=== PATIENT | female | born 1965 | race Caucasian/White ===

== ENCOUNTER 2016-05-16 11:34 | Emergency (ER) | payer OTHER ==
[2016-05-16] MEDS ORDERED: ONDANSETRON 4MG/2ML VIAL (J2405) As Ordered ONE (12:05)
[2016-05-16] MEDS ORDERED: MORPHINE 4 MG/ML 1ML SYRINGE As Ordered ONE (12:05)
[2016-05-16 12:26] LABS: BASO % 0.1 % (0.0-1.0); EOS # 0.2 K/mm3 (0.0-0.50); EOS % 1.3 % (0.0-3.0); LARGE UNSTAINED CELL # 0.1 K/mm3 (0.0-0.4); LARGE UNSTAINED CELL % 1.1 % (0.0-4.0); LYMPH # 2.3 K/mm3 (1.5-4.5); LYMPH % 16.6 % (24.0-44.0); MEAN CORPUSCULAR HEMOGLOBIN 28.2 pg (27.0-33.0); MEAN CORPUSCULAR HGB CONC 32.7 g/dl (32.0-36.5); MEAN CORPUSCULAR VOLUME 86.2 fl (80.0-96.0); MONO # 0.7 K/mm3 (0.0-0.8); MONO % 5.1 % (0.0-5.0); NEUTROPHILS # 9.8 K/mm3 (1.8-7.7); NEUTROPHILS % 75.8 % (36.0-66.0); PLATELET COUNT, AUTOMATED 361 k/mm3 (150-450); RED CELL DISTRIBUTION WIDTH 13.1 % (11.5-14.5)
[2016-05-16 12:47] LABS: ALBUMIN 3.8 GM/DL (3.2-5.2); ALKALINE PHOSPHATASE 95 U/L (45-117); ALT/SGPT 19 U/L (12-78); AMYLASE 31 U/L (25-115); ANION GAP 9 MEQ/L (8-16); AST/SGOT 20 U/L (15-37); BILIRUBIN,DIRECT < 0.1 MG/DL (0.0-0.2); BILIRUBIN,TOTAL 0.3 MG/DL (0.2-1.0); BLOOD UREA NITROGEN 17 MG/DL (7-18); CALCIUM LEVEL 9.3 MG/DL (8.5-10.1); CARBON DIOXIDE LEVEL 28 MEQ/L (21-32); CHLORIDE LEVEL 104 MEQ/L (98-107); CREATININE FOR GFR 0.98 MG/DL (0.55-1.02); GLOMERULAR FILTRATION RATE > 60.0 (>51); GLUCOSE, FASTING 110 MG/DL (70-105); POTASSIUM SERUM 4.2 MEQ/L (3.5-5.1); SODIUM LEVEL 141 MEQ/L (136-145)
--- NOTE | 2016-05-16 13:45 | REP ---
CT ABDOMEN PELVIS WITHOUT IV OR ORAL CONTRAST: Renal stone protocol. HISTORY: Renal colic. No comparison study. FINDINGS: Digital preliminary technician chemical cleaning radiograph shows an unremarkable bowel gas pattern. The lung bases are essentially clear. The liver and the spleen are normal in size and homogeneous in texture. There is mild fatty infiltration of the liver. Gallbladder shows heterogeneous density interiorly question gallstones in the dependent portion of the gallbladder. The pancreas is unremarkable. No adrenal lesion is seen on either side. There is no evidence of intrarenal calculus in either kidney. There is mild to moderate left-sided hydronephrosis and left-sided hydroureter is seen. There is some perinephric and periureteral stranding. The left ureter is traced to the bladder without evidence of ureteral stone. No bladder calculus is seen. No mass lesion is observed. No right ureteral stone is seen. No right-sided hydronephrosis is noted. There is mild diverticulosis in the sigmoid colon without CT evidence of diverticulitis. No abdominal wall defect is seen. Small and large intestinal bowel loops are unremarkable. Normal appendix is seen. No uterine or ovarian abnormality is observed. IMPRESSION: Left-sided hydronephrosis and hydroureter. No urinary tract calculus is seen. Question recent stone passage. Left colonic diverticulosis without CT evidence of diverticulitis. Mild diffuse fatty infiltration of the liver. Question cholelithiasis. Otherwise negative. Signed by Donald Willis MD 05/16/2016 02:06 P
[2016-05-16] MEDS ORDERED: TAMSULOSIN 0.4 MG CAP As Ordered ONE (13:49)
[2016-05-16] MEDS ORDERED: NITROFURANTOIN (MACROBID) 100 MG CAP As Ordered ONE (13:49)
[2016-05-16] MEDS ORDERED: PHENAZOPYRIDINE 100 MG TAB As Ordered ONE (13:50)
--- NOTE | 2016-05-16 14:02 | EDDOCDS ---
Nurse's Notes [facility] Name: Sarah Haq Age: 50 yrs Sex: Female : 1965 Arrival Date: 05/16/2016 Time: 11:34 Bed I5 / M5 Private MD: Diagnosis: Urinary tract infection, site not specified;Calculus of kidney and ncftqs-Pfbh-qknax hydronephrosis and hydroureter on CT, most likely recent stone passage;Diverticulosis of large intestine without perforation or abscess without bleeding-Left colonic diverticulosis;Fatty (change of) liver, not elsewhere classified Presentation: 05/16 11:38 Presenting complaint: Patient states: left abd pian since last night. vomiting also. srm Risk factors: the patient reports no vaginal bleeding. Adult Sepsis Screening: The patient does not have new or worsening altered mentation. Patient's respiratory rate is less than 22. Systolic blood pressure is greater than 100. Patient has a qSOFA score of 0- Negative Sepsis Screen. Suicide/Homicide risk assessment- the patient denies having any suicidal and/or homicidal ideations and does not present with any other emotional, behavioral or mental health complaints. Status: Patient is not a support services manager or dependent. Transition of care: patient was not received from another setting of care. 11:38 Acuity: UDAY Level 3 srm 11:38 Method Of Arrival: Walkin/Carried/Asstd srm Triage Assessment: 11:40 General: Appears in no apparent distress, Behavior is appropriate for age, cooperative. srm Pain: Pain currently is 7 out of 10 on a pain scale. Pt Declines HIV testing. GI: Reports LLQ pain. 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 venlafaxine 150 mg oral tr24 1 tab once daily 2. metformin 500 mg Oral tr24 twice a day 3. lamotrigine 200 mg Oral TbDL 1 tab 2 times per day 4. Vicodin 5/500 10-325mg Oral three times a day - PMHx: Anxiety; Depression; back pain; hip pain; Diabetes - NIDDM: controlled; - PSHx: back surgery; ulnar nerve; Tubal ligation; uterine ablation; throat biopsy; - Social history: Smoking status: Patient uses tobacco products, current every day smoker. No barriers to communication noted, The patient speaks fluent Qatari, Speaks appropriately for age. - Family history: Not pertinent. - : The pt / caregiver states he / she is not on anticoagulants. Home medication list is obtained from the patient. - Exposure Risk Screening:: None identified. Screenin:25 Screening information is obtained from the patient. Fall risk: No risks identified. ml6 Assistance ADL's: requires no assistance with activities of daily living. Abuse/DV Screen: The patient / caregiver reports he/she is: not in a situation that causes fear, pain or injury. Nutritional screening: No deficits noted. Advance Directives: Currently, there is no health care proxy. home support is adequate. Assessment: 11:45 General: Appears in no apparent distress, comfortable, Behavior is appropriate for age, ml6 cooperative. Pain: Location: posterior aspect of left lateral abdomen and anterior aspect of left lateral abdomen Pain currently is 4 out of 10 on a pain scale. Pain does not radiate. Quality of pain is described as aching, Pain began 2-3 days ago Is continuous Alleviated by nothing. Aggravated by increased activity. Cardiovascular: No deficits noted. Capillary refill < 3 seconds is brisk in bilateral fingers toes. Respiratory: No deficits noted. GI: Abdomen is flat, non- distended Bowel sounds present X 4 quads. Abd is soft X 4 quads Abd is tender to palpation in posterior aspect of left lateral abdomen and anterior aspect of left lateral abdomen Reports nausea, Denies vomiting. 12:45 Reassessment: Patient appears in no apparent distress at this time. Patient denies pain ml6 at this time. Patient states feeling better. Patient states symptoms have improved. patient states that pain has resolved. Vital Signs: 11:37 BP 162 / 71 RA Sitting (auto/lg); Pulse 95; Resp 18; Temp 98.6(T); Pulse Ox 100% on rs6 R/A; Weight 88.45 kg (R); Height 5 ft. 8 in. (172.72 cm) (R); Pain 7/10; 12:24 Temp 98.3(O); ml6 13:59 BP 147 / 73; Pulse 81; Resp 14; Temp 98.4(O); Pulse Ox 98% on R/A; Pain 0/10; ml6 11:37 Body Mass Index 29.65 (88.45 kg, 172.72 cm) rs6 Vitals: 11:37 Log In Time: May 16, 2016 at 11:37. rs6 ED Course: 11:35 Patient visited by Mirella Hendrickson PCA. rs6 11:35 Patient moved to Waiting rs6 11:37 Patient visited by Mirella Hendrickson PCA. rs6 11:37 Patient moved to Pre RCE rs6 11:38 Triage Initiated srm 11:54 Marina Gibbs PA-C is PHCP. ef1 11:54 Magaly Montemayor MD is Attending Physician. ef1 11:56 Patient visited by Marina Gibbs PA-C. ef1 11:56 Patient moved to I5 / M5 kr3 12:07 Pt greeted and oriented to ED. Patient advised of names of staff involved in care, jamDominique location of call vincent, wait times and NPO status. Patient has correct armband on for positive identification. Bed in low position. Call light in reach. Side rails up X 1. Adult w/ patient. Door closed. 12:19 Patient name changed from Sarah\S\\S\Garrow\S\ to Sraah\S\[place]ark\S\Garrow. EDMS 12:20 [facility] Payment Agreement was scanned into [employer] and attached to record. lg 12:25 Inserted peripheral IV: 18gauge IV in left antecubital area and blood collected. ml6 Patient tolerated the procedure well. Labs drawn. (by ED staff). Sent per order to lab. 12:28 Patient visited by Vinicius Farley RN. ml6 12:58 Patient visited by Vinicius Farley RN. ml6 13:22 Patient visited by Vinicius Farley RN. ml6 13:39 Patient visited by Marina Gibbs PA-C. ef1 13:46 Clayton Yang is Referral Physician. ef1 13:48 Pt greeted and oriented to ED. Patient advised of names of staff involved in care, jamDominique location of call vincent, wait times and NPO status. Patient has correct armband on for positive identification. Bed in low position. Call light in reach. Side rails up X 1. Door closed. 14:00 Discontinued IV bleeding controlled, pressure dressing applied, No redness/swelling at ml6 site. No procedures done that require assistance. 14:01 The patient / caregiver is instructed regarding the plan of care and ED course. ml6 Administered Medications: 12:21 Drug: NS 0.9% 1000 ml [sodium chloride 0.9 % intravenous solution] Route: IV; Rate: ml6 bolus; Site: left antecubital; 13:59 Follow up: IV Status: Completed infusion; Infusion discontinued; IV Intake: 1000ml ml6 12:21 Drug: Ondansetron 4 mg [ondansetron HCl 2 mg/mL intravenous solution (2 mL)] Route: ml6 IVP; Site: left antecubital; 12:21 Drug: morphine 4 mg [morphine 4 mg/mL intravenous cartridge (1 mL)] Route: IVP; Site: ml6 left antecubital; 13:58 Drug: Tamsulosin 0.4 mg [tamsulosin 0.4 mg capsule (1 caps)] Route: PO; ml6 13:58 Drug: Phenazopyridine 200 mg [phenazopyridine 100 mg tablet (2 tabs)] Route: PO; ml6 13:59 Drug: Nitrofurantoin 100 mg [nitrofurantoin macrocrystal 50 mg capsule (2 caps)] Route: ml6 PO; Intake: 13:59 IV: 1000.00ml; Total: 1000.00ml. ml6 Order Results: Lab Order: Amylase; SPEC'M 05/16/16 12:17 Test: AMYLASE; Value: 31; Range: 25-115; Units: U/L; Status: F Lab Order: Basic Metabolic Profile; SPEC'M 05/16/16 12:17 Test: GLUCOSE, FASTING; Value: 110; Range: 70-105; Abnormal: Above high normal; Units: MG/DL; Status: F Test: BLOOD UREA NITROGEN; Value: 17; Range: 7-18; Units: MG/DL; Status: F Test: CREATININE FOR GFR; Value: 0.98; Range: 0.55-1.02; Units: MG/DL; Status: F Test: GLOMERULAR FILTRATION RATE; Value: > 60.0; Range: >51; Status: F Test: SODIUM LEVEL; Value: 141; Range: 136-145; Units: MEQ/L; Status: F Test: POTASSIUM SERUM; Value: 4.2; Range: 3.5-5.1; Units: MEQ/L; Status: F Test: CHLORIDE LEVEL; Value: 104; Range: 98-107; Units: MEQ/L; Status: F Test: CARBON DIOXIDE LEVEL; Value: 28; Range: 21-32; Units: MEQ/L; Status: F Test: ANION GAP; Value: 9; Range: 8-16; Units: MEQ/L; Status: F Test: CALCIUM LEVEL; Value: 9.3; Range: 8.5-10.1; Units: MG/DL; Status: F Test Note: ; Units are mL/min/1.73 m2 Chronic Kidney Disease Staging per NKF: Stage I & II GFR >=60 Normal to Mildly Decreased Stage III GFR 30-59 Moderately Decreased Stage IV GFR 15-29 Severely Decreased Stage V GFR <15 Very Little GFR Left ESRD GFR <15 on PLATE MILL MILL HAND Lab Order: CBC with Diff; SPEC'M 05/16/16 12:17 Test: WHITE BLOOD COUNT; Value: 13.0; Range: 4.0-10.0; Abnormal: Above high normal; Units: K/mm3; Status: F Test: RED BLOOD COUNT; Value: 4.70; Range: 4.00-5.40; Units: M/mm3; Status: F Test: HEMOGLOBIN; Value: 13.3; Range: 12.0-16.0; Units: g/dl; Status: F Test: HEMATOCRIT; Value: 40.6; Range: 36.0-47.0; Units: %; Status: F Test: MEAN CORPUSCULAR VOLUME; Value: 86.2; Range: 80.0-96.0; Units: fl; Status: F Test: MEAN CORPUSCULAR HEMOGLOBIN; Value: 28.2; Range: 27.0-33.0; Units: pg; Status: F Test: MEAN CORPUSCULAR HGB CONC; Value: 32.7; Range: 32.0-36.5; Units: g/dl; Status: F Test: RED CELL DISTRIBUTION WIDTH; Value: 13.1; Range: 11.5-14.5; Units: %; Status: F Test: PLATELET COUNT, AUTOMATED; Value: 361; Range: 150-450; Units: k/mm3; Status: F Test: NEUTROPHILS %; Value: 75.8; Range: 36.0-66.0; Abnormal: Above high normal; Units: %; Status: F Test: LYMPH %; Value: 16.6; Range: 24.0-44.0; Abnormal: Below low normal; Units: %; Status: F Test: MONO %; Value: 5.1; Range: 0.0-5.0; Abnormal: Above high normal; Units: %; Status: F Test: EOS %; Value: 1.3; Range: 0.0-3.0; Units: %; Status: F Test: BASO %; Value: 0.1; Range: 0.0-1.0; Units: %; Status: F Test: LARGE UNSTAINED CELL %; Value: 1.1; Range: 0.0-4.0; Units: %; Status: F Test: NEUTROPHILS #; Value: 9.8; Range: 1.8-7.7; Abnormal: Above high normal; Units: K/mm3; Status: F Test: LYMPH #; Value: 2.3; Range: 1.5-4.5; Units: K/mm3; Status: F Test: MONO #; Value: 0.7; Range: 0.0-0.8; Units: K/mm3; Status: F Test: EOS #; Value: 0.2; Range: 0.0-0.50; Units: K/mm3; Status: F Test: BASO #; Value: 0.0; Range: 0.0-0.2; Units: K/mm3; Status: F Test: LARGE UNSTAINED CELL #; Value: 0.1; Range: 0.0-0.4; Units: K/mm3; Status: F Lab Order: Lipase; SPEC'M 05/16/16 12:17 Test: LIPASE; Value: 121; Range: 73-393; Units: U/L; Status: F Lab Order: Liver Profile; SPEC'M 05/16/16 12:17 Test: AST/SGOT; Value: 20; Range: 15-37; Units: U/L; Status: F Test: ALT/SGPT; Value: 19; Range: 12-78; Units: U/L; Status: F Test: ALKALINE PHOSPHATASE; Value: 95; Range: 45-117; Units: U/L; Status: F Test: BILIRUBIN,TOTAL; Value: 0.3; Range: 0.2-1.0; Units: MG/DL; Status: F Test: BILIRUBIN,DIRECT; Value: < 0.1; Range: 0.0-0.2; Units: MG/DL; Status: F Test: TOTAL PROTEIN; Value: 8.0; Range: 6.4-8.2; Units: GM/DL; Status: F Test: ALBUMIN; Value: 3.8; Range: 3.2-5.2; Units: GM/DL; Status: F Test: ALBUMIN/GLOBULIN RATIO; Value: 0.90; Range: 1.00-1.93; Abnormal: Below low normal; Status: F Lab Order: UA; SPEC'M 05/16/16 12:17 Test: APPEARANCE, URINE; Value: HAZY; Range: CLEAR; Status: F Test: COLOR, URINE; Value: YELLOW; Range: YELLOW; Status: F Test: PH,URINE; Value: 6.0; Range: 5.0-9.0; Units: UNITS; Status: F Test: SPECIFIC GRAVITY URINE AUTO; Value: 1.019; Range: 1.002-1.035; Status: F Test: PROTEIN, URINE AUTO; Value: 2+; Range: NEGATIVE; Abnormal: Above high normal; Units: mg/dL; Status: F Test: GLUCOSE, URINE (UA) AUTO; Value: NEGATIVE; Range: NEGATIVE; Units: mg/dL; Status: F Test: KETONE, URINE AUTO; Value: NEGATIVE; Range: NEGATIVE; Units: mg/dL; Status: F Test: UROBILINOGEN, URINE AUTO; Value: 0.2; Range: 0.0-2.0; Units: mg/dL; Status: F Test: BILIRUBIN, URINE AUTO; Value: NEGATIVE; Range: NEGATIVE; Status: F Test: NITRITE, URINE AUTO; Value: NEGATIVE; Range: NEGATIVE; Status: F Test: LEUKOCYTE ESTERASE, URINE AUTO; Value: TRACE; Range: NEGATIVE; Abnormal: Above high normal; Status: F Test: BLOOD, URINE BLOOD; Value: 3+; Range: NEGATIVE; Abnormal: Above high normal; Status: F Test: WBC, URINE AUTO; Value: 8; Range: 0-3; Abnormal: Above high normal; Units: /HPF; Status: F Test: RBC, URINE AUTO; Value: TNTC; Range: 0-3; Abnormal: Above high normal; Units: /HPF; Status: F Test: BACTERIA, URINE AUTO; Value: NEGATIVE; Range: NEGATIVE; Status: F Test: SQUAMOUS EPITHELIAL CELL UR AU; Value: 1; Range: 0-6; Units: /HPF; Status: F Test: MUCUS, URINE; Value: SMALL; Range: NEGATIVE; Status: F Test: HYALINE CAST, URINE AUTO; Value: 0; Range: 0-1; Units: /LPF; Status: F Test: AMORPHOUS SEDIMENT; Value: SMALL; Range: NEGATIVE; Abnormal: Above high normal; Status: F Outcome: 13:48 Discharge ordered by Provider. ef1 14:00 Discharge Assessment: patient administered narcotics - no. The following High Risk ml6 Discharge criteria are identified: None. Discharged to home ambulatory, with significant other. Condition: stable. Discharge instructions given to patient, Instructed on discharge instructions, follow up and referral plans. medication usage, Demonstrated understanding of instructions, medications, Pt was receptive of discharge instructions/ teaching. Prescriptions given X 3. CT Study completed. Property :Personal belongings accompany Pt. 14:01 Patient left the ED. ml6 Signatures: Dispatcher [employer] EDMS Nava Moe, RN RN Cherelle Freed, DATA CENTER SOLUTIONS ARCHITECT [employer] CENTER [employer]UTIONS ARCHITECT jam1 Lin Zheng, Reg Reg lg Sylvia Christy,RN RN [id number] Marina Gibbs, PAAniya PASylwiaC ef1 Vinicius Farley, HOLLI RN ml6 Mirella Hendrickson, DATA CENTER [employer]UTIONS ARCHITECT [employer] CENTER [employer]UTIONS ARCHITECT rs6 MTDD
--- NOTE | 2016-05-16 14:02 | EDDOCDS ---
Physician Documentation [facility] Name: Sarah Haq Age: 50 yrs Sex: Female : 1965 Arrival Date: 05/16/2016 Time: 11:34 Bed I5 / M5 Private MD: Disposition: 05/16/16 13:48 Discharged to Home/Self Care. Impression: Urinary tract infection, site not specified, Calculus of kidney and ureter - Left-sided hydronephrosis and hydroureter on CT, most likely recent stone passage, Diverticulosis of large intestine without perforation or abscess without bleeding - Left colonic diverticulosis, Fatty (change of) liver, not elsewhere classified. - Condition is Stable. - Discharge Instructions: Diverticulosis, Kidney Stones, [id number], Urinary Tract Infection, [id number]. - Prescriptions for Pyridium 200 mg Oral Tablet - take 1 tablet by ORAL route every 8 hours for 3 days; 9 tablet. Macrobid 100 mg Oral Capsule - take 100 milligram by ORAL route every 12 hours for 10 days; 20 capsule. Flomax 0.4 mg Oral Capsule, Sust. Release 24 hr - take 1 capsule by ORAL route once daily 1/2 hour following the same meal each day; 30 capsule. - Medication Reconciliation, Local Pharmacy Hours form. - Follow up: Private Physician; When: 1 - 2 days; Reason: Recheck today's complaints, Continuance of care. Follow up: Clayton Yang; When: Call to arrange an appointment; Reason: Further diagnostic work-up, Recheck today's complaints, Continuance of care. Follow up: Emergency Department; Reason: Worsening of conditions. - Problem is new. - Symptoms have improved. Historical: - Allergies: no known allergies; - Home Meds: 1. venlafaxine 150 mg oral tr24 1 tab once daily 2. metformin 500 mg Oral tr24 twice a day 3. lamotrigine 200 mg Oral TbDL 1 tab 2 times per day 4. Vicodin 5/500 10-325mg Oral three times a day - PMHx: Anxiety; Depression; back pain; hip pain; Diabetes - NIDDM: controlled; - PSHx: back surgery; ulnar nerve; Tubal ligation; uterine ablation; throat biopsy; - Social history: Smoking status: Patient uses tobacco products, current every day smoker. No barriers to communication noted, The patient speaks fluent Azeri, Speaks appropriately for age. - Family history: Not pertinent. - : The pt / caregiver states he / she is not on anticoagulants. Home medication list is obtained from the patient. - Exposure Risk Screening:: None identified. 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 8 in. (172.72 cm) (R); Pain 7/10; 12:24 Temp 98.3(O); ml6 13:59 BP 147 / 73; Pulse 81; Resp 14; Temp 98.4(O); Pulse Ox 98% on R/A; Pain 0/10; ml6 11:37 Body Mass Index 29.65 (88.45 kg, 172.72 cm) rs6 MDM: 11:46 Undress patient appropriately for examination ordered. sd1 11:46 Amylase Ordered. EDMS 11:46 Basic Metabolic Profile Ordered. EDMS 11:46 CBC with Diff Ordered. EDMS 11:46 Lipase Ordered. EDMS 11:46 Liver Profile Ordered. EDMS 11:47 NOTHING BY MOUTH+DIET ordered. EDMS 11:55 IV Saline Lock ordered. ef1 11:55 NS 0.9% 1000 ml IV at bolus once ordered. ef1 11:55 Ondansetron 4 mg IVP once ordered. ef1 11:55 morphine 4 mg IVP once ordered. ef1 11:56 UA Ordered. EDMS 11:56 Urine Culture Ordered. EDMS 12:09 Financial registration complete. lg 12:14 Vital Signs ordered. ef1 12:20 [facility] Payment Agreement was scanned into [employer] and attached to record. lg 12:22 CT ABD & PELVIS: No Contrast Ordered. EDMS 13:04 Basic Metabolic Profile Reviewed. ef1 13:04 CBC with Diff Reviewed. ef1 13:04 Liver Profile Reviewed. ef1 13:04 UA Reviewed. ef1 13:04 Amylase Reviewed. ef1 13:04 Lipase Reviewed. ef1 13:42 Nitrofurantoin 100 mg PO once ordered. ef1 13:42 Tamsulosin Extended Release 24 hour Capsule 0.4 mg PO once ordered. ef1 13:42 Phenazopyridine 200 mg PO once ordered. ef1 13:58 Tamsulosin Extended Release 24 hour Capsule 0.4 mg PO once ordered. ml6 Administered Medications: 12:21 Drug: NS 0.9% 1000 ml [sodium chloride 0.9 % intravenous solution] Route: IV; Rate: ml6 bolus; Site: left antecubital; 13:59 Follow up: IV Status: Completed infusion; Infusion discontinued; IV Intake: 1000ml ml6 12:21 Drug: Ondansetron 4 mg [ondansetron HCl 2 mg/mL intravenous solution (2 mL)] Route: ml6 IVP; Site: left antecubital; 12:21 Drug: morphine 4 mg [morphine 4 mg/mL intravenous cartridge (1 mL)] Route: IVP; Site: ml6 left antecubital; 13:58 Drug: Tamsulosin 0.4 mg [tamsulosin 0.4 mg capsule (1 caps)] Route: PO; ml6 13:58 Drug: Phenazopyridine 200 mg [phenazopyridine 100 mg tablet (2 tabs)] Route: PO; ml6 13:59 Drug: Nitrofurantoin 100 mg [nitrofurantoin macrocrystal 50 mg capsule (2 caps)] Route: ml6 PO; Signatures: Dispatcher [employer] Magaly Fernandez MD MD sd1 Nava Moe RN RN [facility] Lin Zheng, Pk Reg lg Marina Gibbs, PA-C PA-C ef1 Vinicius Farley RN RN ml6 The chart was reviewed and I authenticate all verbal orders and agree with the evaluation and treatment provided.Attachments: 12:20 [facility] Payment Agreement lg MTDD
--- NOTE | 2016-05-18 15:02 | EDDOCDS ---
Physician Documentation [facility] Name: Sarah Haq Age: 50 yrs Sex: Female : 1965 Arrival Date: 05/16/2016 Time: 11:34 Bed I5 / M5 Private MD: Disposition: 05/16/16 13:48 Discharged to Home/Self Care. Impression: Urinary tract infection, site not specified, Calculus of kidney and ureter - Left-sided hydronephrosis and hydroureter on CT, most likely recent stone passage, Diverticulosis of large intestine without perforation or abscess without bleeding - Left colonic diverticulosis, Fatty (change of) liver, not elsewhere classified. - Condition is Stable. - Discharge Instructions: Diverticulosis, Kidney Stones, [id number], Urinary Tract Infection, [id number]. - Prescriptions for Pyridium 200 mg Oral Tablet - take 1 tablet by ORAL route every 8 hours for 3 days; 9 tablet. Macrobid 100 mg Oral Capsule - take 100 milligram by ORAL route every 12 hours for 10 days; 20 capsule. Flomax 0.4 mg Oral Capsule, Sust. Release 24 hr - take 1 capsule by ORAL route once daily 1/2 hour following the same meal each day; 30 capsule. - Medication Reconciliation, Local Pharmacy Hours form. - Follow up: Private Physician; When: 1 - 2 days; Reason: Recheck today's complaints, Continuance of care. Follow up: Clayton Yang; When: Call to arrange an appointment; Reason: Further diagnostic work-up, Recheck today's complaints, Continuance of care. Follow up: Emergency Department; Reason: Worsening of conditions. - Problem is new. - Symptoms have improved. Historical: - Allergies: no known allergies; - Home Meds: 1. venlafaxine 150 mg oral tr24 1 tab once daily 2. metformin 500 mg Oral tr24 twice a day 3. lamotrigine 200 mg Oral TbDL 1 tab 2 times per day 4. Vicodin 5/500 10-325mg Oral three times a day - PMHx: Anxiety; Depression; back pain; hip pain; Diabetes - NIDDM: controlled; - PSHx: back surgery; ulnar nerve; Tubal ligation; uterine ablation; throat biopsy; - Social history: Smoking status: Patient uses tobacco products, current every day smoker. No barriers to communication noted, The patient speaks fluent Faroese, Speaks appropriately for age. - Family history: Not pertinent. - : The pt / caregiver states he / she is not on anticoagulants. Home medication list is obtained from the patient. - Exposure Risk Screening:: None identified. 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 8 in. (172.72 cm) (R); Pain 7/10; 12:24 Temp 98.3(O); ml6 13:59 BP 147 / 73; Pulse 81; Resp 14; Temp 98.4(O); Pulse Ox 98% on R/A; Pain 0/10; ml6 11:37 Body Mass Index 29.65 (88.45 kg, 172.72 cm) rs6 MDM: 11:46 Undress patient appropriately for examination ordered. sd1 11:46 Amylase Ordered. EDMS 11:46 Basic Metabolic Profile Ordered. EDMS 11:46 CBC with Diff Ordered. EDMS 11:46 Lipase Ordered. EDMS 11:46 Liver Profile Ordered. EDMS 11:47 NOTHING BY MOUTH+DIET ordered. EDMS 11:55 IV Saline Lock ordered. ef1 11:55 NS 0.9% 1000 ml IV at bolus once ordered. ef1 11:55 Ondansetron 4 mg IVP once ordered. ef1 11:55 morphine 4 mg IVP once ordered. ef1 11:56 UA Ordered. EDMS 11:56 Urine Culture Ordered. EDMS 12:09 Financial registration complete. lg 12:14 Vital Signs ordered. ef1 12:20 [facility] Payment Agreement was scanned into [employer] and attached to record. lg 12:22 CT ABD & PELVIS: No Contrast Ordered. EDMS 13:04 Basic Metabolic Profile Reviewed. ef1 13:04 CBC with Diff Reviewed. ef1 13:04 Liver Profile Reviewed. ef1 13:04 UA Reviewed. ef1 13:04 Amylase Reviewed. ef1 13:04 Lipase Reviewed. ef1 13:42 Nitrofurantoin 100 mg PO once ordered. ef1 13:42 Tamsulosin Extended Release 24 hour Capsule 0.4 mg PO once ordered. ef1 13:42 Phenazopyridine 200 mg PO once ordered. ef1 13:58 Tamsulosin Extended Release 24 hour Capsule 0.4 mg PO once ordered. ml6 14:30 T-Sheet-- Draft Copy was scanned into [employer] and attached to record. gb 14:30 Radiology Report was scanned into [employer] and attached to record. gb Administered Medications: 12:21 Drug: NS 0.9% 1000 ml [sodium chloride 0.9 % intravenous solution] Route: IV; Rate: ml6 bolus; Site: left antecubital; 13:59 Follow up: IV Status: Completed infusion; Infusion discontinued; IV Intake: 1000ml ml6 12:21 Drug: Ondansetron 4 mg [ondansetron HCl 2 mg/mL intravenous solution (2 mL)] Route: ml6 IVP; Site: left antecubital; 12:21 Drug: morphine 4 mg [morphine 4 mg/mL intravenous cartridge (1 mL)] Route: IVP; Site: ml6 left antecubital; 13:58 Drug: Tamsulosin 0.4 mg [tamsulosin 0.4 mg capsule (1 caps)] Route: PO; ml6 13:58 Drug: Phenazopyridine 200 mg [phenazopyridine 100 mg tablet (2 tabs)] Route: PO; ml6 13:59 Drug: Nitrofurantoin 100 mg [nitrofurantoin macrocrystal 50 mg capsule (2 caps)] Route: ml6 PO; Signatures: Dispatcher [employer] EDMgaaly Jose MD MD sd1 Nava Moe RN RN [facility] Jessica Topete, Reg Reg gb Lin Zheng, Reg Reg lg Marina Gibbs PA-Ilia PAAniya ef1 Vinicius Farley RN RN ml6 The chart was reviewed and I authenticate all verbal orders and agree with the evaluation and treatment provided.Attachments: 12:20 [facility] Payment Agreement lg 14:30 T-Sheet-- Draft Copy gb Chart Complete MTDD
--- NOTE | 2016-05-18 15:02 | EDDOCDS ---
Nurse's Notes [facility] Name: Sarah Haq Age: 50 yrs Sex: Female : 1965 Arrival Date: 05/16/2016 Time: 11:34 Bed I5 / M5 Private MD: Diagnosis: Urinary tract infection, site not specified;Calculus of kidney and [id number]-[id number] hydronephrosis and hydroureter on CT, most likely recent stone passage;Diverticulosis of large intestine without perforation or abscess without bleeding-Left colonic diverticulosis;Fatty (change of) liver, not elsewhere classified Presentation: 05/16 11:38 Presenting complaint: Patient states: left abd pian since last night. vomiting also. srm Risk factors: the patient reports no vaginal bleeding. Adult Sepsis Screening: The patient does not have new or worsening altered mentation. Patient's respiratory rate is less than 22. Systolic blood pressure is greater than 100. Patient has a qSOFA score of 0- Negative Sepsis Screen. Suicide/Homicide risk assessment- the patient denies having any suicidal and/or homicidal ideations and does not present with any other emotional, behavioral or mental health complaints. Status: Patient is not a financial services representative or dependent. Transition of care: patient was not received from another setting of care. 11:38 Acuity: UDAY Level 3 srm 11:38 Method Of Arrival: Walkin/Carried/Asstd srm Triage Assessment: 11:40 General: Appears in no apparent distress, Behavior is appropriate for age, cooperative. srm Pain: Pain currently is 7 out of 10 on a pain scale. Pt Declines HIV testing. GI: Reports LLQ pain. 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 venlafaxine 150 mg oral tr24 1 tab once daily 2. metformin 500 mg Oral tr24 twice a day 3. lamotrigine 200 mg Oral TbDL 1 tab 2 times per day 4. Vicodin 5/500 10-325mg Oral three times a day - PMHx: Anxiety; Depression; back pain; hip pain; Diabetes - NIDDM: controlled; - PSHx: back surgery; ulnar nerve; Tubal ligation; uterine ablation; throat biopsy; - Social history: Smoking status: Patient uses tobacco products, current every day smoker. No barriers to communication noted, The patient speaks fluent Vincentian, Speaks appropriately for age. - Family history: Not pertinent. - : The pt / caregiver states he / she is not on anticoagulants. Home medication list is obtained from the patient. - Exposure Risk Screening:: None identified. Screenin:25 Screening information is obtained from the patient. Fall risk: No risks identified. ml6 Assistance ADL's: requires no assistance with activities of daily living. Abuse/DV Screen: The patient / caregiver reports he/she is: not in a situation that causes fear, pain or injury. Nutritional screening: No deficits noted. Advance Directives: Currently, there is no health care proxy. home support is adequate. Assessment: 11:45 General: Appears in no apparent distress, comfortable, Behavior is appropriate for age, ml6 cooperative. Pain: Location: posterior aspect of left lateral abdomen and anterior aspect of left lateral abdomen Pain currently is 4 out of 10 on a pain scale. Pain does not radiate. Quality of pain is described as aching, Pain began 2-3 days ago Is continuous Alleviated by nothing. Aggravated by increased activity. Cardiovascular: No deficits noted. Capillary refill < 3 seconds is brisk in bilateral fingers toes. Respiratory: No deficits noted. GI: Abdomen is flat, non- distended Bowel sounds present X 4 quads. Abd is soft X 4 quads Abd is tender to palpation in posterior aspect of left lateral abdomen and anterior aspect of left lateral abdomen Reports nausea, Denies vomiting. 12:45 Reassessment: Patient appears in no apparent distress at this time. Patient denies pain ml6 at this time. Patient states feeling better. Patient states symptoms have improved. patient states that pain has resolved. Vital Signs: 11:37 BP 162 / 71 RA Sitting (auto/lg); Pulse 95; Resp 18; Temp 98.6(T); Pulse Ox 100% on rs6 R/A; Weight 88.45 kg (R); Height 5 ft. 8 in. (172.72 cm) (R); Pain 7/10; 12:24 Temp 98.3(O); ml6 13:59 BP 147 / 73; Pulse 81; Resp 14; Temp 98.4(O); Pulse Ox 98% on R/A; Pain 0/10; ml6 11:37 Body Mass Index 29.65 (88.45 kg, 172.72 cm) rs6 Vitals: 11:37 Log In Time: May 16, 2016 at 11:37. rs6 ED Course: 11:35 Patient visited by Mirella Hendrickson PCA. rs6 11:35 Patient moved to Waiting rs6 11:37 Patient visited by Mirella Hendrickson PCA. rs6 11:37 Patient moved to Pre RCE rs6 11:38 Triage Initiated srm 11:54 Marina Gibbs PA-C is PHCP. ef1 11:54 Magaly Montemayor MD is Attending Physician. ef1 11:56 Patient visited by Marina Gibbs PA-C. ef1 11:56 Patient moved to I5 / M5 kr3 12:07 Pt greeted and oriented to ED. Patient advised of names of staff involved in care, jamDominique location of call vincent, wait times and NPO status. Patient has correct armband on for positive identification. Bed in low position. Call light in reach. Side rails up X 1. Adult w/ patient. Door closed. 12:19 Patient name changed from Sarah\S\\S\Garrow\S\ to Sarah\S\[place]\S\Garrow. EDMS 12:20 [facility] Payment Agreement was scanned into [employer] and attached to record. lg 12:25 Inserted peripheral IV: 18gauge IV in left antecubital area and blood collected. ml6 Patient tolerated the procedure well. Labs drawn. (by ED staff). Sent per order to lab. 12:28 Patient visited by Vinicius Farley RN. ml6 12:58 Patient visited by Vinicius Farley RN. ml6 13:22 Patient visited by Vinicius Farley RN. ml6 13:39 Patient visited by Marina Gibbs PA-C. ef1 13:46 Clayton Yang is Referral Physician. ef1 13:48 Pt greeted and oriented to ED. Patient advised of names of staff involved in care, jamDominique location of call vincent, wait times and NPO status. Patient has correct armband on for positive identification. Bed in low position. Call light in reach. Side rails up X 1. Door closed. 14:00 Discontinued IV bleeding controlled, pressure dressing applied, No redness/swelling at ml6 site. No procedures done that require assistance. 14:01 The patient / caregiver is instructed regarding the plan of care and ED course. ml6 14:13 CT ABD & PELVIS: No Contrast Returned. EDMS 14:30 T-Sheet-- Draft Copy was scanned into [employer] and attached to record. gb 14:30 Radiology Report was scanned into [employer] and attached to record. gb Administered Medications: 12:21 Drug: NS 0.9% 1000 ml [sodium chloride 0.9 % intravenous solution] Route: IV; Rate: ml6 bolus; Site: left antecubital; 13:59 Follow up: IV Status: Completed infusion; Infusion discontinued; IV Intake: 1000ml ml6 12:21 Drug: Ondansetron 4 mg [ondansetron HCl 2 mg/mL intravenous solution (2 mL)] Route: ml6 IVP; Site: left antecubital; 12:21 Drug: morphine 4 mg [morphine 4 mg/mL intravenous cartridge (1 mL)] Route: IVP; Site: ml6 left antecubital; 13:58 Drug: Tamsulosin 0.4 mg [tamsulosin 0.4 mg capsule (1 caps)] Route: PO; ml6 13:58 Drug: Phenazopyridine 200 mg [phenazopyridine 100 mg tablet (2 tabs)] Route: PO; ml6 13:59 Drug: Nitrofurantoin 100 mg [nitrofurantoin macrocrystal 50 mg capsule (2 caps)] Route: ml6 PO; Intake: 13:59 IV: 1000.00ml; Total: 1000.00ml. ml6 Order Results: Lab Order: Amylase; SPEC'M 05/16/16 12:17 Test: AMYLASE; Value: 31; Range: 25-115; Units: U/L; Status: F Lab Order: Basic Metabolic Profile; SPEC'M 05/16/16 12:17 Test: GLUCOSE, FASTING; Value: 110; Range: 70-105; Abnormal: Above high normal; Units: MG/DL; Status: F Test: BLOOD UREA NITROGEN; Value: 17; Range: 7-18; Units: MG/DL; Status: F Test: CREATININE FOR GFR; Value: 0.98; Range: 0.55-1.02; Units: MG/DL; Status: F Test: GLOMERULAR FILTRATION RATE; Value: > 60.0; Range: >51; Status: F Test: SODIUM LEVEL; Value: 141; Range: 136-145; Units: MEQ/L; Status: F Test: POTASSIUM SERUM; Value: 4.2; Range: 3.5-5.1; Units: MEQ/L; Status: F Test: CHLORIDE LEVEL; Value: 104; Range: 98-107; Units: MEQ/L; Status: F Test: CARBON DIOXIDE LEVEL; Value: 28; Range: 21-32; Units: MEQ/L; Status: F Test: ANION GAP; Value: 9; Range: 8-16; Units: MEQ/L; Status: F Test: CALCIUM LEVEL; Value: 9.3; Range: 8.5-10.1; Units: MG/DL; Status: F Test Note: ; Units are mL/min/1.73 m2 Chronic Kidney Disease Staging per NKF: Stage I & II GFR >=60 Normal to Mildly Decreased Stage III GFR 30-59 Moderately Decreased Stage IV GFR 15-29 Severely Decreased Stage V GFR <15 Very Little GFR Left ESRD GFR <15 on CATALOG SPECIALIST Lab Order: CBC with Diff; SPEC'M 05/16/16 12:17 Test: WHITE BLOOD COUNT; Value: 13.0; Range: 4.0-10.0; Abnormal: Above high normal; Units: K/mm3; Status: F Test: RED BLOOD COUNT; Value: 4.70; Range: 4.00-5.40; Units: M/mm3; Status: F Test: HEMOGLOBIN; Value: 13.3; Range: 12.0-16.0; Units: g/dl; Status: F Test: HEMATOCRIT; Value: 40.6; Range: 36.0-47.0; Units: %; Status: F Test: MEAN CORPUSCULAR VOLUME; Value: 86.2; Range: 80.0-96.0; Units: fl; Status: F Test: MEAN CORPUSCULAR HEMOGLOBIN; Value: 28.2; Range: 27.0-33.0; Units: pg; Status: F Test: MEAN CORPUSCULAR HGB CONC; Value: 32.7; Range: 32.0-36.5; Units: g/dl; Status: F Test: RED CELL DISTRIBUTION WIDTH; Value: 13.1; Range: 11.5-14.5; Units: %; Status: F Test: PLATELET COUNT, AUTOMATED; Value: 361; Range: 150-450; Units: k/mm3; Status: F Test: NEUTROPHILS %; Value: 75.8; Range: 36.0-66.0; Abnormal: Above high normal; Units: %; Status: F Test: LYMPH %; Value: 16.6; Range: 24.0-44.0; Abnormal: Below low normal; Units: %; Status: F Test: MONO %; Value: 5.1; Range: 0.0-5.0; Abnormal: Above high normal; Units: %; Status: F Test: EOS %; Value: 1.3; Range: 0.0-3.0; Units: %; Status: F Test: BASO %; Value: 0.1; Range: 0.0-1.0; Units: %; Status: F Test: LARGE UNSTAINED CELL %; Value: 1.1; Range: 0.0-4.0; Units: %; Status: F Test: NEUTROPHILS #; Value: 9.8; Range: 1.8-7.7; Abnormal: Above high normal; Units: K/mm3; Status: F Test: LYMPH #; Value: 2.3; Range: 1.5-4.5; Units: K/mm3; Status: F Test: MONO #; Value: 0.7; Range: 0.0-0.8; Units: K/mm3; Status: F Test: EOS #; Value: 0.2; Range: 0.0-0.50; Units: K/mm3; Status: F Test: BASO #; Value: 0.0; Range: 0.0-0.2; Units: K/mm3; Status: F Test: LARGE UNSTAINED CELL #; Value: 0.1; Range: 0.0-0.4; Units: K/mm3; Status: F Lab Order: Lipase; SPEC'M 05/16/16 12:17 Test: LIPASE; Value: 121; Range: 73-393; Units: U/L; Status: F Lab Order: Liver Profile; SPEC'M 05/16/16 12:17 Test: AST/SGOT; Value: 20; Range: 15-37; Units: U/L; Status: F Test: ALT/SGPT; Value: 19; Range: 12-78; Units: U/L; Status: F Test: ALKALINE PHOSPHATASE; Value: 95; Range: 45-117; Units: U/L; Status: F Test: BILIRUBIN,TOTAL; Value: 0.3; Range: 0.2-1.0; Units: MG/DL; Status: F Test: BILIRUBIN,DIRECT; Value: < 0.1; Range: 0.0-0.2; Units: MG/DL; Status: F Test: TOTAL PROTEIN; Value: 8.0; Range: 6.4-8.2; Units: GM/DL; Status: F Test: ALBUMIN; Value: 3.8; Range: 3.2-5.2; Units: GM/DL; Status: F Test: ALBUMIN/GLOBULIN RATIO; Value: 0.90; Range: 1.00-1.93; Abnormal: Below low normal; Status: F Lab Order: UA; SPEC'M 05/16/16 12:17 Test: APPEARANCE, URINE; Value: HAZY; Range: CLEAR; Status: F Test: COLOR, URINE; Value: YELLOW; Range: YELLOW; Status: F Test: PH,URINE; Value: 6.0; Range: 5.0-9.0; Units: UNITS; Status: F Test: SPECIFIC GRAVITY URINE AUTO; Value: 1.019; Range: 1.002-1.035; Status: F Test: PROTEIN, URINE AUTO; Value: 2+; Range: NEGATIVE; Abnormal: Above high normal; Units: mg/dL; Status: F Test: GLUCOSE, URINE (UA) AUTO; Value: NEGATIVE; Range: NEGATIVE; Units: mg/dL; Status: F Test: KETONE, URINE AUTO; Value: NEGATIVE; Range: NEGATIVE; Units: mg/dL; Status: F Test: UROBILINOGEN, URINE AUTO; Value: 0.2; Range: 0.0-2.0; Units: mg/dL; Status: F Test: BILIRUBIN, URINE AUTO; Value: NEGATIVE; Range: NEGATIVE; Status: F Test: NITRITE, URINE AUTO; Value: NEGATIVE; Range: NEGATIVE; Status: F Test: LEUKOCYTE ESTERASE, URINE AUTO; Value: TRACE; Range: NEGATIVE; Abnormal: Above high normal; Status: F Test: BLOOD, URINE BLOOD; Value: 3+; Range: NEGATIVE; Abnormal: Above high normal; Status: F Test: WBC, URINE AUTO; Value: 8; Range: 0-3; Abnormal: Above high normal; Units: /HPF; Status: F Test: RBC, URINE AUTO; Value: TNTC; Range: 0-3; Abnormal: Above high normal; Units: /HPF; Status: F Test: BACTERIA, URINE AUTO; Value: NEGATIVE; Range: NEGATIVE; Status: F Test: SQUAMOUS EPITHELIAL CELL UR AU; Value: 1; Range: 0-6; Units: /HPF; Status: F Test: MUCUS, URINE; Value: SMALL; Range: NEGATIVE; Status: F Test: HYALINE CAST, URINE AUTO; Value: 0; Range: 0-1; Units: /LPF; Status: F Test: AMORPHOUS SEDIMENT; Value: SMALL; Range: NEGATIVE; Abnormal: Above high normal; Status: F Lab Order: Urine Culture; SPEC'M 05/16/16 12:17 Test: URINE CULTURE; Value: <EXTERNAL COMMENT eCWMed> FULL REPORT IN LAB NOTES (eCW and Medent).; Status: F Test: URINE CULTURE; Value: URINE CULTURE RESULT NO GROWTH; Status: F Radiology Order: CT ABD & PELVIS: No Contrast Test: CT ABD & PELVIS: No Contrast REASON FOR EXAMINATION: Renal colic; CT ABDOMEN PELVIS WITHOUT IV OR ORAL CONTRAST: Renal stone protocol.; ; HISTORY: Renal colic.; ; No comparison study.; ; FINDINGS: 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 The lung bases are essentially clear. The liver and the spleen are; normal in size and homogeneous in texture. There is mild fatty infiltration of; the liver. Gallbladder shows heterogeneous density interiorly question; gallstones in the dependent portion of the gallbladder. The pancreas is; unremarkable. No adrenal lesion is seen on either side. There is no evidence of; intrarenal calculus in either kidney. There is mild to moderate left-sided; hydronephrosis and left-sided hydroureter is seen. There is some perinephric and; periureteral stranding. The left ureter is traced to the bladder without; evidence of ureteral stone. No bladder calculus is seen. No mass lesion is; observed. No right ureteral stone is seen. No right-sided hydronephrosis is; noted. There is mild diverticulosis in the sigmoid colon without CT evidence of; diverticulitis. No abdominal wall defect is seen. Small and large intestinal; bowel loops are unremarkable. Normal appendix is seen. No uterine or ovarian; abnormality is observed.; ; IMPRESSION:; ; Left-sided hydronephrosis and hydroureter. No urinary tract calculus is seen.; Question recent stone passage.; ; Left colonic diverticulosis without CT evidence of diverticulitis.; ; Mild diffuse fatty infiltration of the liver. Question cholelithiasis.; ; Otherwise negative.; ; ; Signed by; Donald Willis MD 05/16/2016 02:06 P; Outcome: 13:48 Discharge ordered by Provider. ef1 14:00 Discharge Assessment: patient administered narcotics - no. The following High Risk ml6 Discharge criteria are identified: None. Discharged to home ambulatory, with significant other. Condition: stable. Discharge instructions given to patient, Instructed on discharge instructions, follow up and referral plans. medication usage, Demonstrated understanding of instructions, medications, Pt was receptive of discharge instructions/ teaching. Prescriptions given X 3. CT Study completed. Property :Personal belongings accompany Pt. 14:01 Patient left the ED. ml6 Signatures: Dispatcher [employer] EDMS Nava Moe, RN RN Cherelle Freed, PHOTOSTAT OPERATOR PHOTOSTAT OPERATOR jam1 Jessica Topete, Reg Reg gb Lin Zheng, Reg Reg lg Sylvia Christy,RN RN candi3 Marina Gibbs, MIN PAAniya ef1 Vinicius Farley, RN RN ml6 Mirella Hendrickson, PHOTOSTAT OPERATOR PHOTOSTAT OPERATOR rs6 Chart Complete MTDD
--- NOTE | 2016-05-18 15:02 | EDDOCDS ---
Physician Documentation [facility] Name: Sarah Haq Age: 50 yrs Sex: Female : 1965 Arrival Date: 05/16/2016 Time: 11:34 Bed I5 / M5 Private MD: Disposition: 05/16/16 13:48 Discharged to Home/Self Care. Impression: Urinary tract infection, site not specified, Calculus of kidney and ureter - Left-sided hydronephrosis and hydroureter on CT, most likely recent stone passage, Diverticulosis of large intestine without perforation or abscess without bleeding - Left colonic diverticulosis, Fatty (change of) liver, not elsewhere classified. - Condition is Stable. - Discharge Instructions: Diverticulosis, Kidney Stones, [id number], Urinary Tract Infection, [id number]. - Prescriptions for Pyridium 200 mg Oral Tablet - take 1 tablet by ORAL route every 8 hours for 3 days; 9 tablet. Macrobid 100 mg Oral Capsule - take 100 milligram by ORAL route every 12 hours for 10 days; 20 capsule. Flomax 0.4 mg Oral Capsule, Sust. Release 24 hr - take 1 capsule by ORAL route once daily 1/2 hour following the same meal each day; 30 capsule. - Medication Reconciliation, Local Pharmacy Hours form. - Follow up: Private Physician; When: 1 - 2 days; Reason: Recheck today's complaints, Continuance of care. Follow up: Clayton Yang; When: Call to arrange an appointment; Reason: Further diagnostic work-up, Recheck today's complaints, Continuance of care. Follow up: Emergency Department; Reason: Worsening of conditions. - Problem is new. - Symptoms have improved. Historical: - Allergies: no known allergies; - Home Meds: 1. venlafaxine 150 mg oral tr24 1 tab once daily 2. metformin 500 mg Oral tr24 twice a day 3. lamotrigine 200 mg Oral TbDL 1 tab 2 times per day 4. Vicodin 5/500 10-325mg Oral three times a day - PMHx: Anxiety; Depression; back pain; hip pain; Diabetes - NIDDM: controlled; - PSHx: back surgery; ulnar nerve; Tubal ligation; uterine ablation; throat biopsy; - Social history: Smoking status: Patient uses tobacco products, current every day smoker. No barriers to communication noted, The patient speaks fluent Maltese, Speaks appropriately for age. - Family history: Not pertinent. - : The pt / caregiver states he / she is not on anticoagulants. Home medication list is obtained from the patient. - Exposure Risk Screening:: None identified. 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 8 in. (172.72 cm) (R); Pain 7/10; 12:24 Temp 98.3(O); ml6 13:59 BP 147 / 73; Pulse 81; Resp 14; Temp 98.4(O); Pulse Ox 98% on R/A; Pain 0/10; ml6 11:37 Body Mass Index 29.65 (88.45 kg, 172.72 cm) rs6 MDM: 11:46 Undress patient appropriately for examination ordered. sd1 11:46 Amylase Ordered. EDMS 11:46 Basic Metabolic Profile Ordered. EDMS 11:46 CBC with Diff Ordered. EDMS 11:46 Lipase Ordered. EDMS 11:46 Liver Profile Ordered. EDMS 11:47 NOTHING BY MOUTH+DIET ordered. EDMS 11:55 IV Saline Lock ordered. ef1 11:55 NS 0.9% 1000 ml IV at bolus once ordered. ef1 11:55 Ondansetron 4 mg IVP once ordered. ef1 11:55 morphine 4 mg IVP once ordered. ef1 11:56 UA Ordered. EDMS 11:56 Urine Culture Ordered. EDMS 12:09 Financial registration complete. lg 12:14 Vital Signs ordered. ef1 12:20 [facility] Payment Agreement was scanned into Answer.To and attached to record. lg 12:22 CT ABD & PELVIS: No Contrast Ordered. EDMS 13:04 Basic Metabolic Profile Reviewed. ef1 13:04 CBC with Diff Reviewed. ef1 13:04 Liver Profile Reviewed. ef1 13:04 UA Reviewed. ef1 13:04 Amylase Reviewed. ef1 13:04 Lipase Reviewed. ef1 13:42 Nitrofurantoin 100 mg PO once ordered. ef1 13:42 Tamsulosin Extended Release 24 hour Capsule 0.4 mg PO once ordered. ef1 13:42 Phenazopyridine 200 mg PO once ordered. ef1 13:58 Tamsulosin Extended Release 24 hour Capsule 0.4 mg PO once ordered. ml6 14:30 T-Sheet-- Draft Copy was scanned into Answer.To and attached to record. gb 14:30 Radiology Report was scanned into Answer.To and attached to record. gb Administered Medications: 12:21 Drug: NS 0.9% 1000 ml [sodium chloride 0.9 % intravenous solution] Route: IV; Rate: ml6 bolus; Site: left antecubital; 13:59 Follow up: IV Status: Completed infusion; Infusion discontinued; IV Intake: 1000ml ml6 12:21 Drug: Ondansetron 4 mg [ondansetron HCl 2 mg/mL intravenous solution (2 mL)] Route: ml6 IVP; Site: left antecubital; 12:21 Drug: morphine 4 mg [morphine 4 mg/mL intravenous cartridge (1 mL)] Route: IVP; Site: ml6 left antecubital; 13:58 Drug: Tamsulosin 0.4 mg [tamsulosin 0.4 mg capsule (1 caps)] Route: PO; ml6 13:58 Drug: Phenazopyridine 200 mg [phenazopyridine 100 mg tablet (2 tabs)] Route: PO; ml6 13:59 Drug: Nitrofurantoin 100 mg [nitrofurantoin macrocrystal 50 mg capsule (2 caps)] Route: ml6 PO; Signatures: Dispatcher Casero EDMagaly Jose MD MD sd1 Nava Moe RN RN [facility] Jessica Topete, Reg Reg gb Lin Zheng, Reg Reg lg Marina Gibbs PA-Ilia PAAniya ef1 Vinicius Farley RN RN ml6 The chart was reviewed and I authenticate all verbal orders and agree with the evaluation and treatment provided.Attachments: 12:20 [facility] [place] Payment Agreement lg 14:30 T-Sheet-- Draft Copy gb Chart Complete MTDD
== END 2016-05-16 14:01 | disposition home or self-care (01) ==
LOC: M ED 11:34
DX: N20.1 Calculus of ureter (principal); K57.30 Diverticulosis of large intestine without perforation or abscess without bleeding; K76.0 Fatty (change of) liver, not elsewhere classified; N39.0 Urinary tract infection, site not specified; R11.10 Vomiting, unspecified; E11.9 Type 2 diabetes mellitus without complications; F32.9 Major depressive disorder, single episode, unspecified; F41.9 Anxiety disorder, unspecified; M54.9 Dorsalgia, unspecified; M25.559 Pain in unspecified hip; Z79.899 Other long term (current) drug therapy; Z79.84 Long term (current) use of oral hypoglycemic drugs; Z79.891 Long term (current) use of opiate analgesic; F17.200 Nicotine dependence, unspecified, uncomplicated